=== PATIENT | female | born 1960 | race Caucasian/White ===

== ENCOUNTER → 2017-01-28 | Outpatient (CLI) | payer BC ==
[~2017-01-28] MED LIST: ACET-732; BUSP10TA71 PO; CITA40TA14 PO; CLON-202 PO; DIPH25CA84 PO; HYDR-3841 PO; MIRT15TA6 PO; MUCINEX PO; OSEL75CA PO; RALO60TA9 PO; VIT C; ZINC; [UNRECOGNIZED DRUG - CODE] PO
== END ==
LOC: WC.BC 14:18
PROVIDERS: ATTEND Family Medicine
DX: Z03.89 Encounter for observation for other suspected diseases and conditions ruled out (principal)
CPT/HCPCS: 76642; 77061; G0206